=== PATIENT | male | born 1990 | race Caucasian/White ===

== ENCOUNTER 2017-06-04 09:27 | Emergency (ER) | payer OTHER ==
[~2017-06-04] VITALS: Ht 177.8 cm; Wt 94.3 kg
--- NOTE | 2017-06-04 10:24 | ED GI/GU/ABDOMINAL COMPLAINT ---
History of Present Illness General Chief Complaint: Male Genitourinary Problems Stated Complaint: HX OF KIDNEY STONES; LOWER BP/ BLOODY URINATION Source: patient Exam Limitations: no limitations Vital Signs & Intake/Output Vital Signs & Intake/Output Vital Signs Date Time Temp Pulse Resp B/P B/P Pulse O2 O2 Flow FiO2 Mean Ox Delivery Rate 06/04 1346 98.4 63 18 160/93 100 Room Air 06/04 1048 98.0 100 16 164/88 06/04 0931 98.0 100 16 164 100 Room Air Allergies Coded Allergies: No Known Allergies (06/04/17) Triage Note: COMPLAINS OF HISTORY OF KIDNEY STONES AND THAT FOR THE PAST 2 DAYS HAS BEEN HAVING L FLANK PAIN AND THIS AM NOTED BLOOD IN HIS URINE Triage Nurses Notes Reviewed? yes HPI: Patient has a known history of kidney stones and had lithotripsy one year ago. Patient woke up this morning with left flank pain radiating around towards his groin. He is also noticed blood in his urine. Positive nausea and vomiting. The pain is cramping in nature. The pain is 10 out of 10. The pain radiates as noted above. There are no aggravating or mitigating factors. Past History Travel History Traveled to [place] past 21 day No Medical History Any Pertinent Medical History? 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 No Review of Systems Review of Systems Constitutional: Reports: no symptoms. EENTM: Reports: no symptoms. Respiratory: Reports: no symptoms. Cardiovascular: Reports: no symptoms. GI: Reports: see HPI, nausea, vomiting. Genitourinary: Reports: see HPI, hematuria. Musculoskeletal: Reports: see HPI, back pain. Skin: Reports: no symptoms. Neurological/Psychological: Reports: no symptoms. Hematologic/Endocrine: Reports: no symptoms. Immunologic/Allergic: Reports: no symptoms. All Other Systems: Reviewed and Negative Physical Exam Physical Exam General Appearance: well developed/nourished, alert, awake, anxious, moderate distress Head: atraumatic, normal appearance Eyes: Bilateral: PERRL, EOMI. Ears, Nose, Throat, Mouth: hearing grossly normal, moist mucous membrane Neck: normal inspection, supple, full range of motion Respiratory: normal breath sounds, chest non-tender, no respiratory distress, lungs clear Cardiovascular: regular rate/rhythm, normal peripheral pulses Gastrointestinal: normal bowel sounds, soft, non-tender, no organomegaly Back: CVA tenderness (L) Neurologic/Psych: no motor/sensory deficits, awake, alert, oriented x 3, normal gait, normal mood/affect Core Measures ACS in differential dx? No Sepsis Present: No Sepsis Focused Exam Completed? No Progress Differential Diagnosis: ureterolithiasis, UTI/pyelo Plan of Care: Orders Procedure Date/time Status URINALYSIS 06/04 928 Complete Laboratory Tests 06/04/17 1345: Urine Color YEL, Urine Clarity HAZY H, Urine pH 6.0, Ur Specific [place] 1.020, Urine Protein 30 H, Urine Ketones TRACE H, Urine Nitrite NEG, Urine Bilirubin NEG@ICTO, Urine Urobilinogen 0.2, Ur Leukocyte Esterase TRACE H, Ur Microscopic SEDIMENT EXAMINED, Urine RBC 25-50 H, Urine WBC RARE, Ur Epithelial Cells FEW, Urine Crystals 1+ CA OX H, Urine Bacteria FEW H, Urine Mucus MOD H, Urine Hemoglobin LARGE H, Urine Glucose NEG Diagnostic Imaging: Viewed by Me: CT Scan. Discussed w/RAD: CT Scan. Radiology Impression: PATIENT: IMANI MERCADO PRESENT AGE: 27 PATIENT ACCOUNT NO: [id number] : 92 LOCATION: [facility] ORDERING PHYSICIAN: Hammad Andrade MD SERVICE DATE: 06/04/17 EXAM TYPE: CAT - CT ABD & PELVIS W/O IV CONTRAS EXAMINATION: CT ABDOMEN AND PELVIS WITHOUT CONTRAST CLINICAL INFORMATION: Flank pain concerning for urolithiasis. COMPARISON: None TECHNIQUE: Multidetector volumetric imaging was performed from the superior aspect of the liver through the pubic symphysis. Sagittal and coronal reformatted images were obtained on the technologist's workstation. DLP: 511.57 mGy-cm FINDINGS: LUNG BASES: There is a small calcified 0.2 cm nodule at the right base. No other abnormality. LIVER, GALLBLADDER, AND BILIARY TREE: The liver is normal in size, shape, and attenuation. No focal hepatic lesion or biliary ductal dilatation is present. The gallbladder is unremarkable with no evidence of radiopaque gallstones, gallbladder wall thickening, or obvious pericholecystic inflammatory changes. PANCREAS: Unremarkable. SPLEEN: Unremarkable. ADRENAL GLANDS: Unremarkable. KIDNEYS AND URETERS: There are nonobstructing calculi in the lower poles of each kidney. The calculus in the right measures 0.4 cm. On the left the calculus measures 0.6 cm. There is suggestion of a tiny adjacent calculus. There is no hydronephrosis. No ureteric calculi are seen. BLADDER: The bladder is decompressed and not well assessed. No abnormality is seen. GASTROINTESTINAL TRACT: The stomach and duodenum are unremarkable. Proximal small bowel loops are mildly prominent. There is no transition zone to suggest obstruction. The small bowel mesentery is unremarkable. The colon is decompressed and unremarkable. The appendix is normal. ABDOMINAL WALL: Unremarkable. LYMPH NODES: Normal. VASCULAR: Limited assessment without contrast. No abnormality is seen. PELVIC VISCERA: Unremarkable. OSSEOUS STRUCTURES: Unremarkable. IMPRESSION: 1. Nonobstructing calculi both kidneys. No ureteric calculi demonstrated. No hydroureteronephrosis. 2. Mildly prominent proximal small bowel loops with no evidence for obstruction. 3. Normal appendix. DICTATED BY: Oscar Olson MD DATE/TIME DICTATED:06/04/171110 ORDER ENTRY:DONNY DATE/TIME TRANSCRIBED:06/04/171110 CONFIDENTIAL, DO NOT COPY WITHOUT APPROPRIATE AUTHORIZATION. <Electronically signed in Other Vendor System> SIGNED BY: Oscar Olson MD 06/04/17 1127 Initial ED EKG: none Departure Departure Disposition: HOME OR SELF CARE Condition: Stable Clinical Impression Primary Impression: Kidney stone Referrals: Tiki MOSS,Herb Brown MD,Otf Bradley (PCP/Family) Additional Instructions: FOLLOW UP WITH TAKE FLOMAX PRESCRIBED TAKE PERCOCET NEEDED FOR PAIN TAKE ZOFRAN NEEDED FOR NAUSEA RETURN IF SYMPTOMS WORSEN OR FOR ANY CONCERNS Departure Forms: Customer Survey General Discharge Information Prescriptions: Current Visit Scripts Tamsulosin HCl (Flomax) 1 CAP PO DAILY #14 CAP Oxycodone HCl/Acetaminophen (Percocet 5-325 MG Tablet) 1-2 TAB PO Q6P PRN PAIN #12 TAB Ondansetron (Zofran Odt) 1 TAB SL TID PRN NAUSEA #10 TAB
--- NOTE | 2017-06-04 11:27 | CT SCAN REPORT ---
EXAMINATION: CT ABDOMEN AND PELVIS WITHOUT CONTRAST CLINICAL INFORMATION: Flank pain concerning for urolithiasis. COMPARISON: None TECHNIQUE: Multidetector volumetric imaging was performed from the superior aspect of the liver through the pubic symphysis. Sagittal and coronal reformatted images were obtained on the technologist's workstation. DLP: 511.57 mGy-cm FINDINGS: LUNG BASES: There is a small calcified 0.2 cm nodule at the right base. No other abnormality. LIVER, GALLBLADDER, AND BILIARY TREE: The liver is normal in size, shape, and attenuation. No focal hepatic lesion or biliary ductal dilatation is present. The gallbladder is unremarkable with no evidence of radiopaque gallstones, gallbladder wall thickening, or obvious pericholecystic inflammatory changes. PANCREAS: Unremarkable. SPLEEN: Unremarkable. ADRENAL GLANDS: Unremarkable. KIDNEYS AND URETERS: There are nonobstructing calculi in the lower poles of each kidney. The calculus in the right measures 0.4 cm. On the left the calculus measures 0.6 cm. There is suggestion of a tiny adjacent calculus. There is no hydronephrosis. No ureteric calculi are seen. BLADDER: The bladder is decompressed and not well assessed. No abnormality is seen. GASTROINTESTINAL TRACT: The stomach and duodenum are unremarkable. Proximal small bowel loops are mildly prominent. There is no transition zone to suggest obstruction. The small bowel mesentery is unremarkable. The colon is decompressed and unremarkable. The appendix is normal. ABDOMINAL WALL: Unremarkable. LYMPH NODES: Normal. VASCULAR: Limited assessment without contrast. No abnormality is seen. PELVIC VISCERA: Unremarkable. OSSEOUS STRUCTURES: Unremarkable. IMPRESSION: 1. Nonobstructing calculi both kidneys. No ureteric calculi demonstrated. No hydroureteronephrosis. 2. Mildly prominent proximal small bowel loops with no evidence for obstruction. 3. Normal appendix.
[2017-06-04] MEDS ORDERED: FLOMAX0.4 M1 PO (14:12)
[2017-06-04] MEDS ORDERED: ZOFRAN ODT4 M1 SL (14:12)
[2017-06-04] MEDS ORDERED: PERCOCET 5-3251 EACH PO (14:12)
[2017-06-04 15:15] VITALS: BP 158/70
[2017-06-06] MEDS ORDERED: REGLAN10 M1 PO (22:40)
== END 2017-06-04 15:26 ==
LOC: ERH 09:27
DX: N20.0 Calculus of kidney (principal); R31.9 Hematuria, unspecified; R11.2 Nausea with vomiting, unspecified
CPT/HCPCS: 74176; 81001; 96361; 96365; 96375; 96376; 99291; J1885; J2405; J2550

== ENCOUNTER → 2017-06-12 | Day surgery (SDC) | payer OTHER ==
[~2017-06-12] VITALS: Ht 177.8 cm; Wt 93.4 kg
[~2017-06-12] MED LIST: AFRIN30 ML NASB; ALPRAZOLAM1 M2 PO; CLONIDINE HCL0.1 MG PO; DEPLIN-ALGAL O1 EAC1 PO; FLOMAX0.4 M1 PO; PERCOCET 5-3251 EACH PO; REGLAN10 M1 PO; ZOFRAN ODT4 M1 SL
--- NOTE | 2017-06-14 11:49 | Operative Report ---
Operative/Inv Procedure Report Surgery Date: 06/12/17 Name of Procedure: left ESWL Pre-Operative Diagnosis: left renal stone 6mm LP Post-Operative Diagnosis: same Estimated Blood Loss: scant Surgeon/Imaging Tech: Salena Gibson MD Anesthesia: local monitored anesthesi Complications: none Condition: stable Operative Indication: left renal stone 6mm in LP Operative/Procedure Note Note: 27yo male with a hx of left flank pain with a 6mm stone in the left kidney with N/V. He was seen in the ER x2. He was consented for ESWL and given the r/b/a of the procedure. All questions were answered. Pt was brought to the operating room and placed in the supine position. He was optimally positioned after time out was performed. He was givein IV antibiotics. The shockwaves were started at 1-10 power for 1-100 shocks, then power 11-15 for 101-275 shocks, power of 16-20 for 276-375 shocks and finally at power of 20 for 376-2500 shocks. He tolerated the procedure well. The stone was seen to be visibly changed on US. No flouroscopy was used. Patient was transferred to the recovery room in stable condition. Findings: well fragmented stone Discharge Disposition: Same Day Admissions
== END ==
LOC: STS 01:50
DX: N20.0 Calculus of kidney (principal); Z87.442 Personal history of urinary calculi; F17.200 Nicotine dependence, unspecified, uncomplicated
CPT/HCPCS: J0690; J2250

== ENCOUNTER 2017-06-17 19:38 | Emergency (ER) | payer OTHER ==
[~2017-06-17] VITALS: Ht 177.8 cm; Wt 95.3 kg
[2017-06-17 20:58] LABS: ABSOLUTE BASOPHIL COUNT 0 /CUMM (0.0-0.2); ABSOLUTE EOSINOPHIL COUNT 0.2 /CUMM (0.0-0.7); ABSOLUTE GRANULOCYTE CT 6.5 /CUMM (1.4-6.5); ABSOLUTE MONOCYTE COUNT 0.6 /CUMM (0.10-0.60); BASOPHIL % 0.3 % (0.0-2.0); EOSINOPHIL % 1.9 % (0-5); GRANULOCYTE % 63.3 % (42.2-75.2); HEMATOCRIT 45.6 % (42-52); MEAN CORPUSCULAR HGB 28.8 PG (27.0-31.0); MEAN CORPUSCULAR HGB CONC 32.8 G/DL (33.0-37.0); MEAN CORPUSCULAR VOLUME 87.9 FL (80.0-94.0); MEAN PLATELET VOLUME 6.9 FL (7.4-10.4); PLATELET COUNT 312 /CUMM (130-400); RBC DISTRIBUTION WIDTH 13.2 % (11.5-14.5); RED BLOOD CELL CT 5.18 /CUMM (4.70-6.10); WHITE BLOOD CELL COUNT 10.3 /CUMM (4.8-10.8)
--- NOTE | 2017-06-17 21:47 | ED GI/GU/ABDOMINAL COMPLAINT ---
History of Present Illness General Chief Complaint: Abdominal Pain/Flank Pain Stated Complaint: R SIDED PAIN, H/O KIDNEY STONES Source: patient Exam Limitations: no limitations Vital Signs & Intake/Output Vital Signs & Intake/Output Vital Signs Date Time Temp Pulse Resp B/P B/P Pulse O2 O2 Flow FiO2 Mean Ox Delivery Rate 06/17 2215 86 18 124/78 97 Room Air 06/17 2043 99.0 94 18 12/73 98 Room Air ED Intake and Output 06/18 0000 06/17 1200 Intake Total 0 Output Total Balance 0 Intake, Oral 0 Patient 210 lb Weight Weight Estimated Measurement Method Allergies Coded Allergies: No Known Allergies (06/04/17) Reconcile Medications Alprazolam 1 MG TABLET 1 TAB PO BID PRN ANXIETY (Reported) Clonidine HCl 0.1 MG TABLET 1 TAB PO BID PRN ANXIETY (Reported) Ketorolac Tromethamine 10 MG TABLET 1 TAB PO Q6P PRN PAIN (recieved iv here) L-Methylfolate (Deplin-Algal Oil 15 MG Capsule) 15 MG-90.314 MG CAPSULE 1 CAP PO DAILY SUPPLEMENT (Reported) Metoclopramide HCl (Reglan) 10 MG TABLET 1 TAB PO 4 TIMES/DAY PRN nausea 30 minutes before meals and bedtime Ondansetron (Zofran Odt) 4 MG TAB.RAPDIS 1 TAB SL TID PRN NAUSEA Oxymetazoline HCl (Afrin) 0.05 % SPRAY 2 SPRAY NASB DAILY PRN NASAL CONGESTION (Reported) Tamsulosin HCl (Flomax) 0.4 MG CAP.ER.24H 1 CAP PO DAILY KIDNEY STONE Triage Note: RECEIVED 27 YO MALE WITH HX OF KIDNEY STONES, S/P LITHOTRIPSY MONDAY ON LEFT SIDE. 4 MMM ON RIGHT AND 6 MM ON LEFT. PT C/O SEVERE RIGHT FLANK AREA PAIN, RESTARTED TODAY Triage Nurses Notes Reviewed? yes Onset: Abrupt Duration: day(s): (2), constant, continues in ED, getting worse Timing: recent history Quality/Severity: cramping, sharpness Severity Numbers: 9 Location: right flank, right lower quadrant Radiation: no radiation Activities at Onset: none Prior Abdominal Problems: similar symptoms No Modifying Factors: none Associated Symptoms: nausea/vomiting HPI: 27-year-old male past mental history of kidney stones presents for evaluation of right flank and right lower abdominal pain. Patient states that he had a lithotripsy done about one week ago due to a left sided kidney stone. He states that since the lithotripsy he was initially feeling better until a few days ago and the pain returned this time on the right side. Patient states that the pain is located in the right flank and radiates in the right lower quadrant. It is worse with palpation. He also reports hematuria. No fever. He's been taking medicine for nausea. He is tolerating fluids. No diarrhea. No chest pain or shortness of breath. Patient reports a history of opioid abuse and does not want any narcotics. (George Brink) Past History Travel History Traveled to [place] past 21 day No Medical History Any Pertinent Medical History? 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 No (George Brink) Review of Systems Review of Systems Constitutional: Reports: no symptoms. EENTM: Reports: no symptoms. Respiratory: Reports: no symptoms. Cardiovascular: Reports: no symptoms. GI: Reports: see HPI, abdominal pain, nausea. Genitourinary: Reports: see HPI, hematuria. Musculoskeletal: Reports: no symptoms. Skin: Reports: no symptoms. Neurological/Psychological: Reports: no symptoms. Hematologic/Endocrine: Reports: no symptoms. Immunologic/Allergic: Reports: no symptoms. All Other Systems: Reviewed and Negative (George Brink) Physical Exam Physical Exam General Appearance: well developed/nourished, no apparent distress, alert, awake Head: atraumatic, normal appearance Eyes: Bilateral: normal appearance, PERRL, EOMI. Ears, Nose, Throat, Mouth: hearing grossly normal, moist mucous membrane Neck: normal inspection, supple, full range of motion Respiratory: normal breath sounds, chest non-tender, no respiratory distress, lungs clear Cardiovascular: regular rate/rhythm, normal peripheral pulses Peripheral Pulses: 2+ radial (R), 2+ radial (L) Gastrointestinal: normal bowel sounds, soft, no organomegaly, tenderness (rt flank) Back: normal inspection, normal range of motion Extremities: normal range of motion Neurologic/Psych: no motor/sensory deficits, awake, alert, oriented x 3, normal gait, normal mood/affect Skin: intact, normal color, warm/dry Core Measures ACS in differential dx? No Sepsis Present: No Sepsis Focused Exam Completed? No (Edwar SCHERER,George) Progress Differential Diagnosis: appendicitis, biliary colic, cholecystitis, diverticulitis, gastritis, inflamm bowel dis, pancreatitis, pyelonephritis, ureterolithiasis, urinary retention, urethritis, UTI/pyelo Plan of Care: Orders Procedure Date/time Status LIPASE 06/17 1953 Complete HEPATIC FUNCTION PANEL 06/17 1953 Complete CBC WITHOUT DIFFERENTIAL 06/17 1953 Complete BASIC METABOLIC PANEL 06/17 1953 Complete AMYLASE 06/17 1953 Complete URINALYSIS 06/18 1947 Complete Laboratory Tests 06/17/172044: Anion Gap 14, Estimated GFR > 60, BUN/Creatinine Ratio 29.0 H, Glucose 98, Calcium 10.0, Total Bilirubin 0.5, Direct Bilirubin 0.4, AST 28, ALT 51, Alkaline Phosphatase 51, Total Protein 7.7, Albumin 4.7, Amylase 69, Lipase 70, CBC w Diff NO MAN DIFF REQ, RBC 5.18, MCV 87.9, MCH 28.8, MCHC 32.8 L, RDW 13.2 , MPV 6.9 L, Gran % 63.3, Lymphocytes % 29.1, Monocytes % 5.4, Eosinophils % 1.9, Basophils % 0.3, Absolute Granulocytes 6.5, Absolute Lymphocytes 3.0, Absolute Monocytes 0.6, Absolute Eosinophils 0.2, Absolute Basophils 0 06/17/171949: Urine Color YEL, Urine Clarity CLEAR, Urine pH 6.0, Ur Specific [place] 1.025, Urine Protein NEG, Urine Ketones NEG, Urine Nitrite NEG, Urine Bilirubin NEG, Urine Urobilinogen 0.2, Ur Leukocyte Esterase NEG, Ur Microscopic SEDIMENT EXAMINED, Urine RBC 25-50 H, Urine WBC 1-3 H, Ur Epithelial Cells RARE, Urine Mucus MOD H, Urine Hemoglobin LARGE H, Urine Glucose NEG Patient seen and evaluated. He has a history of kidney stones had a lithotripsy done last week. He has similar pain again today. He currently is not taking any pain medicine or antinausea medicine. He was given 60 mg of IM Toradol. Basic blood work CAT scan obtained. Patient is feeling better after Toradol. CT scan shows bilateral stones in the kidneys 6 mm and 4 mm. No hydronephrosis and no stones in the ureter. All blood work is within normal limits no signs of infection in the urine. Patient was instructed to continue resting Tylenol ibuprofen Zofran. Continue Flomax. Follow-up with urology. Discussed return precautions. Patient is tolerating fluids he appears well he agrees the plan. Diagnostic Imaging: Viewed by Me: CT Scan. Discussed w/RAD: CT Scan. Radiology Impression: PATIENT: IMANI MERCADO PRESENT AGE: 27 PATIENT ACCOUNT NO: [id number] : 92 LOCATION: [facility] ORDERING PHYSICIAN: George SCHERER SERVICE DATE: 06/17/17 EXAM TYPE: CAT - CT ABD & PELVIS W/O IV CONTRAS EXAMINATION: CT ABDOMEN AND PELVIS WITHOUT CONTRAST CLINICAL INFORMATION: Right flank pain. Status post lithotripsy. COMPARISON: June 04, 2017. TECHNIQUE: Contiguous axial thin section helical images of the abdomen and pelvis were performed without oral or IV contrast. The data set was reformatted in the coronal and sagittal planes and reviewed on an independent workstation. DLP: 533 mGy-cm. FINDINGS: The visualized lung bases are clear. The visualized portions of the heart are unremarkable. The liver is of normal size and attenuation without focal lesions nor intrahepatic biliary ductal dilation. A normal gallbladder is identified. There is no wall thickening or discernible pericholecystic fluid. The spleen, pancreas, adrenal glands are unremarkable. Both kidneys are of normal size and attenuation without hydronephrosis. Within the interpole region of the right kidney, there is a nonobstructive 6 mm calculus. Within the lower pole of the left kidney, there are 2 nonobstructive renal calculi measuring 3 mm and 4 mm, respectively. There is no abdominal free fluid. There is neither mesenteric nor retroperitoneal lymphadenopathy. Normal unopacified loops of small and large bowel are identified. A normal appendix is identified. There is no pelvic free fluid. The urinary bladder is partially distended. There is neither pelvic nor inguinal lymphadenopathy. Bone windows: Neither sclerotic nor lytic bone lesions are identified. IMPRESSION: Nonobstructive renal calculi bilaterally. No hydronephrosis. No evidence for acute abdominal or pelvic inflammatory or infectious processes. DICTATED BY: Ben Roche MD DATE/TIME DICTATED:06/17/172306 SHAFT MECHANIC:DONNY DATE/TIME TRANSCRIBED:06/17/172306 CONFIDENTIAL, DO NOT COPY WITHOUT APPROPRIATE AUTHORIZATION. <Electronically signed in Other Vendor System> SIGNED BY: Ben Roche MD 06/17/17 7125 Initial ED EKG: none (George Brink) Departure Departure Disposition: HOME OR SELF CARE Condition: Stable Clinical Impression Primary Impression: Renal colic Referrals: Stephanie MOSS,Otf Bradley (PCP/Family) Additional Instructions: Rest and drink plenty of fluids. Continue Flomax as directed. Zofran for nausea. Oral ketorolac as needed for pain. Follow-up with your urologist. MONITOR symptoms return with fever, worsening pain, unable to urinate or any other concerns. Departure Forms: Customer Survey General Discharge Information Prescriptions: Current Visit Scripts Ketorolac Tromethamine 1 TAB PO Q6P PRN PAIN (recieved iv here) #20 TAB (George Brink) PA/YARD SWITCH OPERATOR Co-Sign Statement Statement: ED Attending supervision documentation- [] I saw and evaluated the patient. I have also reviewed all the pertinent lab results and diagnostic results. I agree with the findings and the plan of care as documented in the PA's/YARD SWITCH OPERATOR's documentation. [x] I have reviewed the ED Record and agree with the PA's/YARD SWITCH OPERATOR's documentation. [] Additions or exceptions (if any) to the PAs/YARD SWITCH OPERATOR's note and plan are summarized below: [] (Cindy MOSS,Alonso Moore)
[2017-06-17 22:15] VITALS: BP 124/78
--- NOTE | 2017-06-17 23:13 | CT SCAN REPORT ---
EXAMINATION: CT ABDOMEN AND PELVIS WITHOUT CONTRAST CLINICAL INFORMATION: Right flank pain. Status post lithotripsy. COMPARISON: June 04, 2017. TECHNIQUE: Contiguous axial thin section helical images of the abdomen and pelvis were performed without oral or IV contrast. The data set was reformatted in the coronal and sagittal planes and reviewed on an independent workstation. DLP: 533 mGy-cm. FINDINGS: The visualized lung bases are clear. The visualized portions of the heart are unremarkable. The liver is of normal size and attenuation without focal lesions nor intrahepatic biliary ductal dilation. A normal gallbladder is identified. There is no wall thickening or discernible pericholecystic fluid. The spleen, pancreas, adrenal glands are unremarkable. Both kidneys are of normal size and attenuation without hydronephrosis. Within the interpole region of the right kidney, there is a nonobstructive 6 mm calculus. Within the lower pole of the left kidney, there are 2 nonobstructive renal calculi measuring 3 mm and 4 mm, respectively. There is no abdominal free fluid. There is neither mesenteric nor retroperitoneal lymphadenopathy. Normal unopacified loops of small and large bowel are identified. A normal appendix is identified. There is no pelvic free fluid. The urinary bladder is partially distended. There is neither pelvic nor inguinal lymphadenopathy. Bone windows: Neither sclerotic nor lytic bone lesions are identified. IMPRESSION: Nonobstructive renal calculi bilaterally. No hydronephrosis. No evidence for acute abdominal or pelvic inflammatory or infectious processes.
[2017-06-17] MEDS ORDERED: KETOROLAC TROME10 M1 PO (23:36)
== END 2017-06-17 23:46 ==
LOC: ERH 19:38
PROVIDERS: Pediatrics
DX: N23 Unspecified renal colic (principal)
CPT/HCPCS: 74176; 81001; 96372; J1885; J3101

== ENCOUNTER → 2017-06-30 | Day surgery (SDC) | payer OTHER ==
[~2017-06-30] VITALS: Ht 177.8 cm; Wt 95.3 kg
[~2017-06-30] MED LIST changes: +KETOROLAC TROME10 M1 PO; +NAPROXEN375 M1 PO; +[UNRECOGNIZED DRUG - OTHER] OU
--- NOTE | 2017-06-30 17:39 | Operative Report ---
Operative/Inv Procedure Report Surgery Date: 06/30/17 Name of Procedure: right URS with RPG and stent placement and left URS with RPG and stent placement Pre-Operative Diagnosis: right renal stone and left renal stones Post-Operative Diagnosis: no right renal stones and tiny left renal stones Estimated Blood Loss: scant Surgeon/Subscription Agent: Salena Gibson MD Anesthesia: laryngeal mask airway Drains: 6x26cm stents r and l Complications: none Condition: stable Operative Indication: right and left renal stones Operative/Procedure Note Note: This 27-year-old male with history of bilateral kidney stones. He had a 6 mm left renal stone that was treated with ESWL 2 weeks ago. He had passed 1 or 2 small fragments and was not having any pain on the left side however he was having some right renal colic. He wished to have this side treated with a right ureteroscopy. He was given the risks benefits and alternatives of the surgery and consent was signed in the holding area. All questions were answered. Patient was taken to the operating placed on the operating table in supine position. Timeout was performed. IV antibiotics were infused. He was placed in the dorsal lithotomy position and prepped and draped in the standard sterile fashion. Cystoscope was placed into the bladder under direct visualization and the bladder was globally inspected. There were no abnormalities masses or lesions or trabeculation. The right ureteral orifice was easily identified and was cannulated with a sensor guidewire. This was placed into the renal pelvis with fluoroscopic guidance. The dual-lumen catheter was then used to place a second wire with the superstiff with fluoroscopic guidance. The dual-lumen catheter was removed and the ureteral access sheath was then placed first with the inner sheath alone followed by the inner and outer sheath together under fluoroscopic guidance. The flexible ureteroscope was then placed into the renal pelvis and the calyces were examined sequentially from the upper mid to lower poles. No stones were identified and each calyx was examined again and again no stones were seen. Retrograde pyelogram was then performed and no filling defects were seen. The ureteroscope was then removed with the ureteral access sheath and the ureter was visualized and no stones were seen in the ureter. The safety wire was then used to place a 6 x 26 cm ureteral stent using cystoscopic and fluoroscopic guidance. Stent was seen to be in good position and the wire was removed. At this time given the lack of stones on the right side, left ureteroscopy was performed. The same maneuvers were done on the left side. The renal calyces were examined in sequential order from the upper mid lower pole. Tiny yellow stones were seen in the midpole however they were not able to be grasped as they were too small. A retropyelogram was performed however to ensure that there were no larger stones that were being missed. None were appreciated and no filling defects were seen. The ureteroscope was removed with the access sheath while visualizing the ureter and no stones were seen in the ureter either. Safety wire was then used with the cystoscope and fluoroscopic guidance to place a 6 x 26 cm ureteral stent. The bladder was emptied. This stents were seen to be in good position with the final fluoroscopic image. Patient tolerated the procedure well the patient was cleaned with Betadine solution. He was transferred to the recovery room stable condition. Findings: No stones on the right side were appreciated. Left side there were 2 tiny stones that were unable to be grasped due to their size.
--- NOTE | 2017-07-01 15:52 | RADIOLOGY REPORT ---
EXAMINATION: CR ABDOMEN/INTRAOPERATIVE FLUOROSCOPY CLINICAL INDICATION: Right ureteroscopy. COMPARISON: CT scan of the abdomen and pelvis dated 06/17/2017. TECHNIQUE/FINDINGS: Fluoroscopic equipment was dedicated to the operating room for the performance of an intraoperative procedure. Several (19) spot films were acquired and are archived in PACS. Please refer to operative notes for procedural detail. FLUOROSCOPY TIME: 30 seconds. IMPRESSION: Administrative dictation for intraoperative fluoroscopy and image archiving in PACS. Please refer to operative notes for details.
== END ==
LOC: STS 04:15
DX: N20.0 Calculus of kidney (principal); Z87.442 Personal history of urinary calculi
CPT/HCPCS: 74018; C2617; J0690; J2250

== ENCOUNTER → 2017-07-11 | Day surgery (SDC) | payer OTHER ==
[~2017-07-11] VITALS: Ht 177.8 cm; Wt 95.3 kg
[~2017-07-11] MED LIST changes: +CYCLOBENZAPRINE10 M1 PO
--- NOTE | 2017-07-11 14:08 | Operative Report ---
Operative/Inv Procedure Report Surgery Date: 07/11/17 Name of Procedure: CYSTO: RIGHT FLEXIBLE URETEROSCOPY WITH LASER STANDBY Pre-Operative Diagnosis: RIGHT COLIC-SEVERE Post-Operative Diagnosis: SAME Estimated Blood Loss: scant Surgeon/Education Courses Sales Representative: Joby Brunson MD Anesthesia: local monitored anesthesi Specimens: NONE Complications: NONE Operative/Procedure Note Note: The patient was taken to the operating room and placed on the OR table in supine position. Timeout was performed in order to confirm correct patient, procedure, laterality, and other pertinent information with pt. awake. After adequate anesthesia, and antibiotics, the patient was then placed in yellow-fin lithotomy stirrups, draped and prepped in the usual surgical fashion. A 22 [place] cystoscope sheath with 30 angle lens was inserted into the bladder without difficulty. Upon entering the bladder, the bladder was noted to be free of tumor, free of stone. Both orifices were in their orthotopic position. The right ureter orifice was intubated with an 8fr cone-tip catheter and a retrograde pyelogram with fluoroscopy was performed. No filling defect was seen. The cone-tipped catheter was removed, followed by insertion of a 0.035 Glidewire , which was advanced into the right renal pelvis without difficulty, and placement was confirmed on fluoroscopy. Leaving the Glidewire in place, and the flexible ureteroscope was inserted over the gluidewire into the bladder. The flexible ureteroscope was advanced up the right ureter with fluoroscopy visualization, following the gluidewire. Pyeloscopy and calyxoscopy, of the upper, middle, and lower poles reveal no evidence of tumor, no evidence of stone. Additionally, no stones, nor any tumor was visualized in the renal pelvis. The entire length of the ureter was also visualized carefully on the way out revealing no significant pathology. The bladder was then drained at the endof the case. The patient tolerated the procedure well, and was then taken to the recovery room in satisfactory condition. Discharge Disposition: PACU CC: Joby Brunson MD
--- NOTE | 2017-07-12 06:44 | RADIOLOGY REPORT ---
EXAMINATION: INTRAOPERATIVE FLUOROSCOPIC GUIDANCE AND ABDOMEN CLINICAL INFORMATION: Nephrolithiasis. Right ureteroscopy. COMPARISON: 07/03/2017. TECHNIQUE: Fluoroscopic time was utilized in the OR for Dr. Brunson. Fluoroscopic images were obtained in the AP projection. FINDINGS: Fluoroscopic guidance was provided during a right ureteroscopy. Contrast is identified within normal right calyces. There are no demonstrable filling defects. FLUOROSCOPY TIME: 26 seconds of fluoroscopic time was utilized for the entirety of this examination. IMPRESSION: Fluoroscopic guidance was provided during a right ureteroscopy. Contrast is identified within normal right calyces. There are no demonstrable filling defects.
== END ==
LOC: STS 03:31
DX: N23 Unspecified renal colic (principal); Z87.442 Personal history of urinary calculi; F17.200 Nicotine dependence, unspecified, uncomplicated
CPT/HCPCS: 74018; J2250

== ENCOUNTER → 2017-09-05 | Day surgery (SDC) | payer OTHER ==
[~2017-09-05] VITALS: Ht 177.8 cm; Wt 95.3 kg
--- NOTE | 2017-09-05 08:40 | Operative Report ---
Operative/Inv Procedure Report Surgery Date: 09/05/17 Name of Procedure: right renal ESWL/fluoroscopy Pre-Operative Diagnosis: right renal stone with colic Post-Operative Diagnosis: same Estimated Blood Loss: none Surgeon/Wireline Operator: Joby Brunson MD Anesthesia: moderate sedation Complications: none Operative/Procedure Note Note: The patient was taken to the operating room placed on the OR table in supine position. Timeout was performed, with the patient awake, in order to confirm correct procedure, laterality, anesthesia, and other pertinent perioperative information. After adequate anesthesia and antibiotics, the patient was then positioned over the ESWL table cutout overlying the treatment dome. Fluoroscopy, using AP and oblique views, as well as renal ultrasound, or performed in order to locate the stone. The position of the RIGHT renal stone was optimized, and positioned in the middle of the ESWL crosshairs. The stone was measured to be approximately 6 mm in size. ESWL was initiated at low power, and after 200 shockwaves delivered , noting the patient's tolerance to the shockwaves, the power was increased to maximum. At the end of 2500 shockwaves, fluoroscopy confirms the change in consistency of the stone, indicating shattering of the stone. All sponge needle and instrument count were correct at the end of the case. The patient tolerated the procedures well, and was taken to the recovery room in satisfactory condition. The patient is discharged home with pain medication, and follow-up instructions with in 2-3 weeks' time. Discharge Disposition: Same Day Admissions CC: Joby Brunson MD
== END ==
LOC: STS 01:43
DX: N20.0 Calculus of kidney (principal); Z87.442 Personal history of urinary calculi
CPT/HCPCS: J2250